=== PATIENT | male | born 1955 | race Caucasian/White ===

== ENCOUNTER 2017-02-23 12:43 | Emergency (ER) | payer OTHER ==
[~2017-02-23 12:43] MED LIST: VICODIN 5/500 T1 TAB PO
== END 2017-02-23 12:53 | disposition home or self-care (01) ==
LOC: CED 12:43
DX: I10 Essential (primary) hypertension (principal); M25.561 Pain in right knee; Z88.8 Allergy status to other drugs, medicaments and biological substances
CPT/HCPCS: 99282